=== PATIENT | male | born 1980 | race Caucasian/White ===

== ENCOUNTER 2021-03-31 14:33 | Emergency (ER) | payer OTHER ==
[2021-03-31] MEDS: Bacitracin/Neomycin/Polymyxin B Oint 0.9 GM U/D Packet TOP ONE (15:18)
--- NOTE | 2021-03-31 15:47 | EDM.PDOC ---
ED HPI GENERAL MEDICAL PROBLEM - General Chief Complaint: Laceration Stated Complaint: Finger laceration Time Seen by Provider: 03/31/21 15:15 Source of Information: Reports: Patient History Limitations: Reports: No Limitations - History of Present Illness INITIAL COMMENTS - FREE TEXT/NARRATIVE: Pt. presents to ER with complaints of injury to R index finger. He states that a metal bar fell, injuring the distal portion of his L index finger. His tetanus is up to date. Pt. denies any decreased ROM, but states that movement makes the finger hurt more. He denies any injury other than what is isolated to R index finger. Onset: Today Onset Date: 03/31/21 Location: Reports: Upper Extremity, Right Quality: Reports: Sharp, Throbbing Severity: Moderate Improves with: Reports: Rest Worsens with: Reports: Movement Right Finger-Index Pain Score (Numeric/FACES): 7 - Related Data Allergies Allergy/AdvReac Type Severity Reaction Status Date / Time No Known Allergies Allergy Verified 03/31/21 14:35 Home Meds: Home Meds . [No Known Home Meds] 03/31/21 [History] Past Medical History - Past Health History Medical/Surgical History: Denies Medical/Surgical History Social & Family History - Tobacco Use Tobacco Use Status *Q: Current Every Day Tobacco User Years of Tobacco use: 15 Packs/Tins Daily: 1 - Caffeine Use Caffeine Use: Reports: Coffee - Recreational Drug Use Recreational Drug Use: No ED ROS GENERAL - Review of Systems Review Of Systems: See Below Constitutional: Reports: No Symptoms HEENT: Reports: No Symptoms Respiratory: Reports: No Symptoms Cardiovascular: Reports: No Symptoms Endocrine: Reports: No Symptoms GI/Abdominal: Reports: No Symptoms : Reports: No Symptoms Musculoskeletal: Reports: Hand Pain (R index finger) Skin: Reports: No Symptoms Neurological: Reports: No Symptoms Psychiatric: Reports: No Symptoms Hematologic/Lymphatic: Reports: No Symptoms Immunologic: Reports: No Symptoms ED EXAM, SKIN/RASH Exam: See Below Extremities: Other (partial nail avulsion with laceration/abrasions and maceration to fingertip. No obvious gross bony deformity noted. No injury distal to fingertip.) ED SKIN PROCEDURES - Laceration/Wound Repair Right Digit - 2nd (Index) Appearance: Subcutaneous, Stellate, Irregular, Clean Anesthetic Type: Digital Local Anesthesia - Lidocaine (Xylocaine): 1% Plain Local Anesthetic Volume: Other (6 ml) Skin Prep: Providone-Iodine (Betadine), Saline Exploration/Debridement/Repair: Wound Explored, Multiple Flaps Aligned Closed with: Sutures Lac/Wound length In cm: 1 Suture Size: 4-0 # of Sutures: 2 Suture Type: Interrupted Suture Size: 4-0 # of Sutures: 1 Repaired with: Vicryl Sterile Dressing Applied: Provider Tetanus Status Addressed: Yes Progress/Comments: Pt. hand was prepped and draped in usual sterile fashion. Finger was cleansed with betadine. Digital block was placed in base of R index finger using 6 ml of 1% lidocaine. Once adequate anesthesia was obtained, the nail was bisected vertically and removed. The medial aspect of the nail bed had a large laceration that was closed with a single vicril suture. The area surrounding this laceration was macerated with underlying hematoma. Wound margins were minimally revised, as this lead to more active bleeding. 2 4-0 nylon sutures were placed in the stellate fingertip laceration. There was continued oozing of the macerated areas of the injury, but adequate hemostasis was achieved. Sterile pressure dressing applied by nursing. Tetanus is up to date. Course - Vital Signs Last Recorded V/S: Last Vital Signs Temp 36.8 C 03/31/21 15:05 Pulse 105 H 03/31/21 15:05 Resp 20 03/31/21 15:05 BP 156/85 H 03/31/21 15:05 Pulse Ox 98 03/31/21 15:05 - Orders/Labs/Meds Orders: Active Orders 24 hr Category Date Time Status Fingers Second Digit Rt F6 [CR] Stat Exams 03/31/21 14:38 Taken Meds: Medications Discontinued Medications Generic Name Dose Route Start Last Admin Trade Name Tylor PRN Reason Stop Dose Admin Lidocaine HCl 10 ml 03/31/21 14:50 03/31/21 15:01 Lidocaine 1% 5 Ml Sdv INJECT 03/31/21 14:51 10 ml ONETIME ONE Administration Lidocaine HCl Confirm 03/31/21 14:56 03/31/21 15:02 Lidocaine 1% 5 Ml Sdv Administered 03/31/21 14:57 Not Given Dose 10 ml .ROUTE .STK-MED ONE Neomycin/Polymyxin/Bacitracin 1 each 03/31/21 15:09 03/31/21 15:18 Bacitracin/Neomycin/Polymyxin B Oint 0.9 Gm U/D Packet TOP 03/31/21 15:10 1 each ONETIME ONE Administration - Radiology Interpretation Free Text/Narrative:: No obvious fracture to 2nd digit of R hand. Departure - Departure Time of Disposition: 15:50 Disposition: Home, Self-Care 01 Clinical Impression: Fingernail avulsion, Laceration - Discharge Information Instructions: Nail Avulsion Referrals: PCP,None [Primary Care Provider] - Forms: ED Department Discharge Additional Instructions: Home to rest. Tylenol #3 1 every 4-6 hours as needed for pain Off work until 04-03-2021 Then, no lifting with R hand more than 5 pounds with R hand for 2 weeks Keep finger dry for 48 hours. Then, change dressing and clean with warm water once daily. Return to ER if redness, swelling, or discharge from the area. Sepsis Event Note (ED) - Evaluation Sepsis Screening Result: No Definite Risk - Focused Exam Vital Signs: Vital Signs Temp Pulse Resp BP Pulse Ox 03/31/21 15:05 36.8 C 105 H 20 156/85 H 98 - Problem List Review Problem List Initiated/Reviewed/Updated: Yes - My Orders Last 24 Hours: My Active Orders 03/31/21 14:38 Fingers Second Digit Rt F6 [CR] Stat - Assessment/Plan Last 24 Hours: My Active Orders 03/31/21 14:38 Fingers Second Digit Rt F6 [CR] Stat Plan: Home to rest. Tylenol #3 1 every 4-6 hours as needed for pain Off work until 04-03-2021 Then, no lifting with R hand more than 5 pounds with R hand for 2 weeks Keep finger dry for 48 hours. Then, change dressing and clean with warm water once daily. Return to ER if redness, swelling, or discharge from the area.
== END 2021-03-31 15:40 | disposition home or self-care (01) ==
LOC: LL.ED 14:33
DX: S61.310A Laceration without foreign body of right index finger with damage to nail, initial encounter (principal); Z72.0 Tobacco use; W20.8XXA Other cause of strike by thrown, projected or falling object, initial encounter
CPT/HCPCS: 12001; 73140-F6; 99282-25; 99283